=== PATIENT | male | born 1985 | race African-American/Black ===

== ENCOUNTER 2019-01-31 05:48 | Emergency (ER) | payer SELFPAY ==
[~2019-01-31] VITALS: Ht 170.2 cm; Wt 104.8 kg
--- NOTE | 2019-01-31 08:49 | Diagnostic Imaging Report ---
RIGHT HAND - 3 Image(s) HISTORY: Injury, hurts, swollen, steal she dropped on hand COMPARISON: None available. FINDINGS: Bones: No acute displaced fracture. No aggressive osseous lesion. A 5 mm chronic unhealed avulsion fracture adjacent to the radial aspect of the head of the first metacarpal bone. Joints: Osseous alignment is within normal limits and the joint spaces are well-maintained. Soft tissues: Nonspecific soft tissue swelling. IMPRESSION: 1. Nonspecific soft tissue swelling. 2. Otherwise, no acute radiographic abnormality. Signed by: Dr. Ramiro Johnson D.O., M.M.M. on 01/31/2019 8:45 AM
== END 2019-01-31 07:04 | disposition home or self-care (01) ==
LOC: ER 05:48
DX: S60.221A Contusion of right hand, initial encounter (principal); W20.8XXA Other cause of strike by thrown, projected or falling object, initial encounter; Y99.0 Civilian activity done for income or pay
CPT/HCPCS: 99283